=== PATIENT | female | born 1975 | race African-American/Black ===

== ENCOUNTER 2018-12-06 12:55 | Emergency (ER) | payer MEDICAID, OTHER ==
[~2018-12-06] VITALS: Ht 177.8 cm; Wt 122.5 kg
[2018-12-06 13:10] VITALS: BP 110/74
--- NOTE | 2018-12-06 13:10 | NUR ---
ED Nurse Note: Patient walked in to ER c/o Rt lower leg pain 10/ since Tuesday. pt aao x4, ambulatory but limping noted. skin clean and intact and pt calm and cooperative. no skin wound or trauma notied on Rt leg.
[2018-12-06] MEDS ORDERED: Ketorolac 30mg Inj IM ONE (13:30)
--- NOTE | 2018-12-06 13:41 | Emergency Room Report ---
History of Present Illness General Chief Complaint: Pain Source: Patient Present Illness HPI 43-year-old female presents to the emergency department complaining of progressive 10 out of 10 in severity pain that is localized to the anterior left knee over the course of 3 days. Patient denies significant trauma or fall but she does state that she began feeling her symptoms after pushing carts while at work she states that she was doing a pivot motion when she felt the pain. Patient denies hearing a pop or having difficulty with bending or extending the leg. Patient does report that extension of the leg exacerbates her symptoms or weightbearing does. Patient states that rest or sitting her symptoms are for the most part relieved. Patient denies previous injury to this extremity. She denies erythema, warmth or recent open wounds. Patient reports some swelling in the left knee as well.Denies numbness tingling or loss of sensation or gross motor movements of the extremities, incontinence of bowel or bladder. Denies CP, Palpitations, LOC, AMS, dizziness, Changes in Vision, weakness or a sudden severe headache. Allergies: Coded Allergies: No Known Allergies (Unverified , 12/06/18) Patient History Past Medical History: see triage record Past Surgical History: none Pertinent Family History: none Last Menstrual Period: 12/03/18 Now: No Reviewed Nursing Documentation: PMH: Agreed; PSxH: Agreed Nursing Documentation-PMH Past Medical History: No History, Except For Hx Asthma: Yes Review of Systems All Other Systems: negative except mentioned in HPI Physical Exam Vital Signs Date Time Temp Pulse Resp B/P (MAP) Pulse Ox O2 Delivery O2 Flow Rate FiO2 12/06/18 13:00 97.9 80 20 110/74 97 Room Air Sp02 EP Interpretation: reviewed, normal General Appearance: no apparent distress, alert, GCS 15, non-toxic, obese Head: normocephalic, atraumatic Eyes: bilateral eye normal inspection, bilateral eye PERRL ENT: hearing grossly normal, normal voice Neck: full range of motion Respiratory: chest non-tender, lungs clear, normal breath sounds, speaking full sentences Cardiovascular #1: regular rate, rhythm, normal capillary refill Cardiovascular #2: 2+ dorsalis pedis (R), 2+ dorsalis pedis (L) Rectal: deferred Genitourinary: normal inspection Musculoskeletal: back normal, gait/station normal, normal range of motion, tender - anterior left leg with deep palpation. some pain with anterior drawer test, neg. drawer tests. FROM, no increased laxity in the joint. Neurologic: alert, oriented x3, responsive, motor strength/tone normal, sensory intact, speech normal, grossly normal Psychiatric: judgement/insight normal Skin: normal color, no rash, warm/dry, well hydrated Medical Decision Making PA Attestation Dr. Castro is my supervising Physician whom patient management has been discussed with. Diagnostic Impression: Primary Impression: Left knee sprain Qualified Codes: S83.92XA - Sprain of unspecified site of left knee, initial encounter ER Course 43-year-old female presents to the emergency department complaining of progressive 10 out of 10 in severity pain that is localized to the anterior left knee over the course of 3 days. Patient denies significant trauma or fall but she does state that she began feeling her symptoms after pushing carts while at work she states that she was doing a pivot motion when she felt the pain. Patient denies hearing a pop or having difficulty with bending or extending the leg. Patient does report that extension of the leg exacerbates her symptoms or weightbearing does. Patient states that rest or sitting her symptoms are for the most part relieved. Patient denies previous injury to this extremity. She denies erythema, warmth or recent open wounds. Patient reports some swelling in the left knee as well.Denies numbness tingling or loss of sensation or gross motor movements of the extremities, incontinence of bowel or bladder. Denies CP, Palpitations, LOC, AMS, dizziness, Changes in Vision, weakness or a sudden severe headache. Ddx considered but are not limited to Fracture, dislocation, contusion, septic joint, pseudo gout, gout, cellulitis, effusion , Sprain/Strain/Spasm, ligamental injury just to name a few. Vital signs: are WNL, pt. is afebrile H&PE are most consistent with knee strain/ overuse. ORDERS: X-ray Left knee complete 3 view - negative for fx, Dislocation, or significant soft tissue injury ED INTERVENTIONS: - Toradol --Knee Immobilizer splint applied to the Left Knee by pharmacy technician assistant. Pt. remains neurovascularly intact. --Patient is provided with crutches and instructed on their use -I do not identify an emergent condition at this time. With current presentation , pt. is stable for close outpatient follow up and conservative treatment. D/ w pt. to return promptly to ED with worsening or new symptoms.- Pt. verbalizes' understanding and agreement with proposed treatment plan.proposed treatment plan. DISCHARGE: At this time pt. is stable for d/c to home. Will provide printed patient care instructions, and any necessary prescriptions. Care plan and follow up instructions have been discussed with the patient prior to discharge. Other X-Ray Diagnostic Results Other X-Ray Diagnostic Results : X-Ray ordered: Left knee # of Views/Limited Vs Complete: 3 View Indication: Pain EP Interpretation: Yes PA Xray: Interpretation reviewed, by supervising MD, and agrees with findings. Interpretation: no dislocation, no soft tissue swelling, no fractures Impression: No acute disease Electronically Signed by: Shanna Cortés PA-C Last Vital Signs Date Time Temp Pulse Resp B/P (MAP) Pulse Ox O2 Delivery O2 Flow Rate FiO2 12/06/18 13:10 97.9 64 20 110/74 97 Room Air Status: improved Disposition: HOME, SELF-CARE Condition: Stable Scripts Diclofenac Sodium (VOLTAREN) 100 Gm Gel..gram. 1 APPLIC TP Q6HR, #100 GM Prov: Shanna Cortés 12/06/18 Naproxen* (NAPROXEN*) 500 Mg Tablet.dr 500 MG ORAL TWICE A DAY for 10 Days, #20 TAB Prov: Shanna Cortés 12/06/18 Departure Forms: Return to Work Return to Work Date: December 07, 2018 Work Restrictions: No Heavy Lifting, No Prolonged Standing, Desk Work Only Other Restrictions: light duty, limited use of left leg. Return to Full Activity: December 15, 2018 Patient Instructions: Knee Sprain, [id number] Additional Instructions: Take medications as directed. Follow up with an [facility] in 3-5 days, even if your symptoms have resolved. If symptoms persist MRI may be required at the discretion of your PCP or Ortho Specialist. --Please review list of primary care clinics, if you do not already have a primary care provider who can give you an Orthopedic Referral. Return sooner to ED if new symptoms occur, or current symptoms become worse. - Please note that this Emergency Department Report was dictated using [employer] ledger bookkeeper technology software, occasionally this can lead to erroneous entry secondary to interpretation by the dictation equipment. Shanna Cortés December 06, 2018 13:41
--- NOTE | 2018-12-06 14:07 | NUR ---
ED Nurse Note: x-ray being taken at the bedside.
[2018-12-06] MEDS ORDERED: NAPROXEN500 M1 ORAL ×2 (14:26)
[2018-12-06] MEDS ORDERED: VOLTAREN100 G1 TP ×2 (14:26)
--- NOTE | 2018-12-06 14:35 | NUR ---
ED Nurse Note: Crutches and immobilizer applied with education.
[2018-12-06 14:39] VITALS: BP 118/81
--- NOTE | 2018-12-06 14:40 | NUR ---
ER DISCHARGE NOTE: Patient is cleared to be discharged per ERPA after knee immomilizer and crutches provided, pt is aox4, on room air, with stable vital signs. pt was given dc and prescription instructions, pt was able to verbalize understanding, pt id band removed. pt is able to ambulate with crutches. pt took all belongings.
--- NOTE | 2018-12-06 14:42 | Diagnostic Imaging Report ---
Indication: Left knee pain Technique: 3 views of the left knee Comparison: None Findings: No suprapatellar effusion. No acute fractures. No dislocations. The joint spaces are preserved Impression: Negative
== END 2018-12-06 14:41 | disposition home or self-care (01) ==
LOC: EMR 13:30
DX: S83.92XA Sprain of unspecified site of left knee, initial encounter (principal); X50.9XXA Other and unspecified overexertion or strenuous movements or postures, initial encounter; Y92.89 Other specified places as the place of occurrence of the external cause; J45.909 Unspecified asthma, uncomplicated
CPT/HCPCS: 29515; 73562; 96372; 99283; J1885